=== PATIENT | female | born 1950 | race Caucasian/White ===

== ENCOUNTER → 2018-04-09 | Outpatient (CLI) | payer MEDICARE | END | disposition home or self-care (01) | LOC: RAH 09:35 | PROVIDERS: ATTEND Family Medicine | DX: R92.8 Other abnormal and inconclusive findings on diagnostic imaging of breast (principal); Z85.3 Personal history of malignant neoplasm of breast | CPT/HCPCS: 77066 ==

== ENCOUNTER → 2018-06-11 | Outpatient (CLI) | payer MEDICARE ==
--- NOTE | 2018-06-11 22:46 | NUR ---
CURRENT MEDICATION LIST BOTH PRESCRIPTION AND OTC PER PATIENT: TUMERIC 1 CAP, SYNTHROID 0.75 MG , LISINOPRIL 10 MG , CRESTOR 40 MG , NEXIUM 1 TAB AM, VITAMIN D 50,000 IU ONCE A WEEK, LORIE. E 800 MG DAY. Addendum: 06/11/18 at 2253 by DWIGHT DOBSON Amended: Links added.
== END | disposition home or self-care (01) ==
LOC: SLP 20:21
PROVIDERS: ATTEND Family Medicine
DX: G47.33 Obstructive sleep apnea (adult) (pediatric) (principal)
CPT/HCPCS: 95811

== ENCOUNTER → 2019-04-15 | Outpatient (CLI) | payer MEDICARE | END | disposition home or self-care (01) | LOC: RAH 02-23 13:48 | PROVIDERS: ATTEND Family Medicine | DX: R92.2 Inconclusive mammogram (principal); Z85.3 Personal history of malignant neoplasm of breast | CPT/HCPCS: 77066 ==

== ENCOUNTER → 2019-05-28 | Outpatient (CLI) | payer MEDICARE | END | disposition home or self-care (01) | LOC: RAH 09:51 | PROVIDERS: ATTEND Family Medicine | DX: I08.8 Other rheumatic multiple valve diseases (principal) | CPT/HCPCS: 93306 ==

== ENCOUNTER → 2020-01-31 | Outpatient (CLI) | payer MEDICARE | END | disposition home or self-care (01) | LOC: OIH 10:00 | PROVIDERS: ATTEND Family Medicine | DX: Z01.818 Encounter for other preprocedural examination (principal); M47.814 Spondylosis without myelopathy or radiculopathy, thoracic region; Z98.890 Other specified postprocedural states | CPT/HCPCS: 71046 ==

== ENCOUNTER → 2020-05-04 | Outpatient (CLI) | payer MEDICARE ==
[~2020-05-04] MED LIST: IOHEXOL-350 75 ML VIAL IV ONE
== END | disposition home or self-care (01) ==
LOC: RAH 09:53
PROVIDERS: ATTEND Family Medicine
DX: K85.90 Acute pancreatitis without necrosis or infection, unspecified (principal); R10.12 Left upper quadrant pain
CPT/HCPCS: 74178; Q9967

== ENCOUNTER → 2020-06-02 | Outpatient (CLI) | payer MEDICARE | END | disposition home or self-care (01) | LOC: RAH 07:54 | PROVIDERS: ATTEND Internal Medicine Hematology & Oncology | DX: R92.2 Inconclusive mammogram (principal); Z85.3 Personal history of malignant neoplasm of breast | CPT/HCPCS: 77066 ==

== ENCOUNTER → 2020-12-25 | Outpatient (CLI) | payer MEDICARE | END | disposition home or self-care (01) | LOC: SHCH 11:20 | PROVIDERS: ATTEND Internal Medicine Cardiovascular Disease | DX: I51.7 Cardiomegaly (principal); I10 Essential (primary) hypertension; E78.5 Hyperlipidemia, unspecified; E11.9 Type 2 diabetes mellitus without complications | CPT/HCPCS: 93306; 93356 ==

== ENCOUNTER → 2021-02-06 | Outpatient (CLI) | payer MEDICARE, OTHER | END | disposition home or self-care (01) | LOC: OIH 10:02 | PROVIDERS: ATTEND Family Medicine | DX: M47.816 Spondylosis without myelopathy or radiculopathy, lumbar region (principal); M47.812 Spondylosis without myelopathy or radiculopathy, cervical region; M85.88 Other specified disorders of bone density and structure, other site; M47.814 Spondylosis without myelopathy or radiculopathy, thoracic region; M47.818 Spondylosis without myelopathy or radiculopathy, sacral and sacrococcygeal region | CPT/HCPCS: 72040; 72070; 72100 ==

== ENCOUNTER → 2021-06-06 | Outpatient (CLI) | payer MEDICARE, OTHER | LOC: RAH 10:20 | PROVIDERS: ATTEND Internal Medicine Hematology & Oncology | DX: C50.912 Malignant neoplasm of unspecified site of left female breast (principal); R92.8 Other abnormal and inconclusive findings on diagnostic imaging of breast; Z85.3 Personal history of malignant neoplasm of breast | CPT/HCPCS: 77066 ==

== ENCOUNTER → 2021-09-12 | Outpatient (CLI) | payer MEDICARE ==
[~2021-09-12] MED LIST changes: +ALBUTEROL 0.083% 2.5 MG/3 ML INH IH ONE; -IOHEXOL-350 75 ML VIAL IV ONE
== END | disposition home or self-care (01) ==
LOC: RESP 09:42
PROVIDERS: ATTEND Family Medicine
DX: R06.02 Shortness of breath (principal)
CPT/HCPCS: 94060; 94727; 94729

== ENCOUNTER → 2022-04-24 | Outpatient (CLI) | payer MEDICARE | END | disposition home or self-care (01) | LOC: RAH 12:42 | PROVIDERS: ATTEND Family Medicine | DX: R41.82 Altered mental status, unspecified (principal) | CPT/HCPCS: 70450 ==

== ENCOUNTER → 2023-04-22 | Outpatient (CLI) | payer MEDICARE | END | disposition home or self-care (01) | LOC: RAH 13:46 | PROVIDERS: ATTEND Internal Medicine Hematology & Oncology | DX: Z85.3 Personal history of malignant neoplasm of breast (principal) | CPT/HCPCS: 77066 ==

== ENCOUNTER → 2023-08-04 | Outpatient (CLI) | payer MEDICARE | END | disposition home or self-care (01) | LOC: OIH 15:33 | PROVIDERS: ATTEND Family Medicine | DX: J20.9 Acute bronchitis, unspecified (principal) | CPT/HCPCS: 71046 ==

== ENCOUNTER → 2025-04-04 | Outpatient (CLI) | payer MEDICARE | END | disposition home or self-care (01) | LOC: RAH 13:30 | PROVIDERS: ATTEND Family Medicine | DX: Z12.31 Encounter for screening mammogram for malignant neoplasm of breast (principal) | CPT/HCPCS: 77067 ==

== ENCOUNTER 2025-04-21 17:43 | Emergency (ER) | payer MEDICARE ==
[~2025-04-21] VITALS: Ht 160 cm; Wt 108.0 kg
--- NOTE | 2025-04-21 18:17 | ERN ---
ED Note History of Present Illness Stated Complaint: RT EYE PROBLEM Chief Complaint: Eye Problems Time Seen by MD: 18:11 Time Seen by Midlevel: 18:45 Dictation: Ms. Barclay is a 74 year old female with history of hypertension, hyperlipidemia, type 2 diabetes, and morbid obesity who presented to the emergency department this evening for evaluation of stroke symptoms. Patient [facility] she had sudden loss of vision in her right eye on Friday she states that she was [place] photos at the beach when she looked into the sun. She states she lost vision in her right eye and that everything went red she states that vision loss lasted approximately 2-3 minutes.. She went to the marketing content specialist today and was told to come to the hospital to rule out stroke. She states the vision loss has resolved. She denies any focal weakness/paresthesia, dysarthria, dysphasia, dizziness, headache, seizure, or gait ataxia. Allergies: Coded Allergies: No Known Allergies (Unverified Allergy, 05/10/13) Past Medical History Past Medical History: Diabetes-Type II, High Cholesterol, Hypertension Surgical History: Other PSYCH History: no pertinent psych hx Social History: Negative History: Not Applicable RN Note Reviewed/Agreed w/PFSH: Yes Review of System Dictation REVIEW OF SYSTEMS: CONSTITUTIONAL: Patient denies fevers, chills, sweats and weight changes. EYES: Reported loss of vision on Friday for approximately 2-3 minutes after looking into the sun while taking photographs at the beach. She states "everything went red . EARS, NOSE, AND THROAT: No difficulties with hearing. No symptoms of rhinitis or sore throat. CARDIOVASCULAR: Patient denies chest pains, palpitations, orthopnea and paroxysmal nocturnal dyspnea. RESPIRATORY: No dyspnea on exertion, no wheezing or cough. GI: No nausea, vomiting, diarrhea, constipation, abdominal pain, hematochezia or melena. : No urinary hesitancy or dribbling. No nocturia or urinary frequency. No abnormal urethral discharge. MUSCULOSKELETAL: No myalgias or arthralgias. NEUROLOGIC: No chronic headaches, no seizures. Patient denies numbness, tingling or weakness. PSYCHIATRIC: Patient denies problems with mood disturbance. No problems with anxiety. ENDOCRINE: No excessive urination or excessive thirst. DERMATOLOGIC: Patient denies any rashes or skin changes. Initial Vital Sign VS Vital Signs Date Time Temp Pulse Resp B/P (MAP) Pulse Ox O2 Delivery O2 Flow Rate FiO2 04/21/25 17:45 97.9 78 20 166/85 99 0 04/21/25 19:52 Room Air* 21 Physical Exam Dictation Vital signs: Reviewed. Afebrile Constitutional: No acute distress. Non-toxic appearing. Accompanied by son Head/Face: Normocephalic, atraumatic. Eyes: Periorbital areas with no swelling, redness, or edema. Lids and lashes are normal. Conjunctival injection is absent. Sclera anicteric. Pupils equal, round, reactive to light. 3mm. ENT: Pinnas intact and no signs of trauma or erythema. Ear canals clear and no discharge. TMs no erythema. No nasal discharge or bleeding noted. Oropharynx with no exudate, redness, swelling, masses, exudates, or evidence of obstruction. Uvula midline. Mucous membranes moist. Neck: Trachea midline, no masses palpated, and no cervical lymphadenopathy. No swelling. Supple, full range of motion. Chest/Axilla: No tenderness, no crepitus, no paradoxical movement, no retractions. Cardiovascular: Regular rate, regular rhythm, no murmur, no gallops. Symmetric pulses. No peripheral edema. Initial blood pressure 166/85; repeat 136/68. Respiratory: Respirations even and unlabored. Lung sounds clear; no wheezes, rales or rhonchi. Room air SpO2 97% Gastrointestinal: I Ob No distention is appreciated. Bowel sounds are normal. No mass or organomegaly . There is no tenderness. No rebound. No rigidity. No voluntary or involuntary guarding. No Beltran's sign. Neurological: Normal speech, gross motor function intact, gross sensory function intact. No focal weakness/Paresthesia. Ambulates with steady gait. NIHSS=3 Musculoskeletal/Extremities: All extremities have full range of motion, no pain or tenderness on palpation. Symmetric pulses. Integumentary: Intact. Skin is normal color, warm and dry. Cap refill less than 3 seconds. Results (Laboratory/Radiology) Laboratory/Radiology Laboratory Tests Test 04/21/25 18:45 White Blood Count 6.8 K/uL (4.8-10.8) Red Blood Count 4.72 MIL/uL (4.00-5.50) Hemoglobin 14.7 g/dL (12.0-16.0) Hematocrit 46.6 % (36-48) Mean Corpuscular Volume 98.7 fL (79-99) Mean Corpuscular Hemoglobin 31.1 pg (27.0-33.0) Mean Corpuscular Hemoglobin Concent 31.5 g/dL (32.0-36.0) L Red Cell Distribution Width 13.0 % (11.0-15.5) Platelet Count 188 K/uL (130-400) Mean Platelet Volume 11.6 fL (7.5-10.5) H Immature Granulocyte % (Auto) 0.3 % (0-1) Neutrophils (%) (Auto) 54.0 % (40.0-77.0) Lymphocytes (%) (Auto) 32.4 % (21.0-51.0) Monocytes (%) (Auto) 9.6 % (3.0-13.0) Eosinophils (%) (Auto) 3.1 % (0.0-8.0) Basophils (%) (Auto) 0.6 % (0.0-5.0) Neutrophils # (Auto) 3.7 K/uL (1.8-7.7) Lymphocytes # (Auto) 2.2 K/uL (1.0-4.8) Monocytes # (Auto) 0.7 K/uL (0.1-1.0) Eosinophils # (Auto) 0.21 K/uL (0.00-0.70) Basophils # (Auto) 0.04 K/uL (0.00-0.20) Absolute Immature Granulocyte (auto 0.02 K/uL (0-1) Nucleated Red Blood Cells 0.0 % (0.0-0.19) Sodium Level 138 mmol/L (136-145) Potassium Level 3.9 mmol/L (3.5-5.1) Chloride Level 101 mmol/L (101-111) Carbon Dioxide Level 28 mmol/L (21-32) Blood Urea Nitrogen 15 mg/dL (7-18) Creatinine 1.0 mg/dL (0.5-1.0) Glomerular Filtration Rate Calc 59 mL/min (>90) Random Glucose 167 mg/dL (70-105) H Total Calcium 9.9 mg/dL (8.5-10.1) Total Bilirubin 0.4 mg/dL (0.2-1.0) Direct Bilirubin 0.1 mg/dL (0.0-0.3) Aspartate Amino Transf (AST/SGOT) 111 U/L (10-37) H Alanine Aminotransferase (ALT/SGPT) 136 U/L (12-78) H Alkaline Phosphatase 160 U/L (50-136) H Troponin I High Sensitivity 11 ng/L (4-50) Total Protein 7.8 g/dL (6.0-8.3) Albumin 3.4 g/dL (3.5-5.0) L Labs Reviewed?: Yes EKG Comment: EKG Interpretation: Time Reviewed: 1823 Ventricular rate: 76 bpm LA Interval: 165 ms QRS duration: [address] segment elevation or depression. Clinical impression: Sinus rhythm EKG Reviewed and interpreted by Dr. Tyler Rutherford CT Scan Comment: PATIENT: TIESHA BARCLAY MR#: [id number] : 1950 SEX: F AGE: 74 LOCATION: ED ORDER 15 STATUS: [facility] REPORT#: [id number] SERVICE 12 REASON: right eye vision loss 2 days ago; resolved now ORDERING PHYSICIAN: LÁZARO LARRY PROCEDURE: HEAD WO - CT HEAD/BRAIN W/O CONTRAST EXAM: CT Head Without IV contrast. CLINICAL HISTORY: right eye vision loss 2 days ago; resolved now TECHNIQUE: Axial computed tomography images of the head/brain without intravenous contrast. COMPARISON: None provided. FINDINGS: BRAIN: No evidence of acute hemorrhage. No mass lesion. No CT evidence for acute territorial infarct. No midline shift or extra-axial collections. Diffuse cerebral volume loss in the form of prominent cortical sulci and the ventricular system. Diffuse hypodensities in bilateral periventricular white matter, suggestive of chronic small vessel ischemic changes. VENTRICLES: No hydrocephalus. ORBITS: The orbits are unremarkable. SINUSES AND MASTOIDS: The paranasal sinuses and mastoid air cells are clear. BONES: No fracture. Bilateral hyperostosis frontalis. SOFT TISSUES: Unremarkable. IMPRESSION: No acute intracranial abnormality. No acute intracranial hemorrhage/territorial infarct. Diffuse cerebral volume loss with chronic small vessel ischemic changes. Recommend MRI brain for further evaluation if symptoms persist. /[place] DICTATED BY: AIDAN DERAS Jr., MD DATE: 04/21/252023 ELECTRONICALLY SIGNED BY: AIDAN DERAS Jr., MD DATE: 04/21/252023 ED Course ED Course Orders Procedure Category Date Status Time Ct Head/Brain W/O CT 04/21/25 Resulted Contrast 18:13 Cbc With Differential LAB 04/21/25 Complete 18:13 Basic Metabolic Panel LAB 04/21/25 Complete 18:13 Hepatic Function Panel LAB 04/21/25 Complete 18:13 Troponin I High LAB 04/21/25 Complete Sensitivity 18:13 12 Lead Ekg Tracing- EKG 04/21/25 Complete Technical 18:13 Urinalysis Profile LAB 04/21/25 Logged 19:38 Vital Signs Date Time Temp Pulse Resp B/P (MAP) Pulse Ox O2 Delivery O2 Flow Rate FiO2 04/21/25 19:52 98.2 82 20 172/85 97 Room Air* 0 21 04/21/25 17:45 97.9 78 20 166/85 99 0 Uneventful ED course. Patient is pleasant. Initial blood pressures were slightly elevated 172/85. Repeat 138/68 which she uses more her baseline. GCS is 15. NIHSS=0. She states she has some blurriness in her eyes which she contributes to her early cataracts. She denies chest pain shortness of breath. Stat noncontrast CT scan of the brain negative for hemorrhage or suspicious mass effect. Laboratory findings as noted below. No elevation of WBCs H&H are stable. Glucose 167. Albumin 3.4, AST/ALT 111/136, alk-phos 160, and troponin is negative. Twelve lead EKG reflects a sinus rhythm without ST-elevation. She offers no other concerns. She will follow up with your PCP and marketing content specialist. Medical Decision Making MDM MDM: Differential diagnosis: Solar retinopathy, TIA, ocular migraine, occipital lobe stroke, retinal detachment or tear Rationale: Tests considered and ordered secondary to shared decision making include: Examination, EKG Interpretation: lab, CT Previous outside records reviewed: Old ER visits. Risk of complication and/or morbidity or mortality of patient management: None Medications-Per medication reconciliation Need for hospitalization: Patient does not meet criteria for hospitalization. Need for emergency major/minor surgery: No There are no social concerns with this patient. Prescription drug management: Continue home medications. Prescriptions will include symptomatic care Patient's prior external medical records from other ER visits were reviewed by me as indicated. Prior testing and results from previous visits were reviewed. Prior tests were taken into account with medical decision making and resource utilization, independent historian/historians were used to obtain complete medical history. I independently interpreted the test that were performed, results were reviewed by me and considered findings on radiology if ordered. Medical management and examination interpretation discussions were had by me with other qualified healthcare professionals as indicated for the patient's care. DX & DISP Disposition: Discharge Departure Impression: Primary Impression: Solar retinopathy of right eye Additional Impression: Elevated liver function tests Condition: Stable Additional Instructions: Your eye symptoms today are related to briefly looking at the sun and are not a sign of a stroke. Your brain scan was normal. Your EKG was normal. During your visit today we also check routine blood work. If you have your lab as were mildly elevated, and although they are not related to your eye symptoms, they should be follow up on. Your liver enzymes were elevated ALT 136, AST 111, and alk-phos 160. These numbers are higher than normal and can occur for many reasons including alcohol use, [id number] medication uses fatty liver disease, or mild inflammation/irritation of the liver. You should avoid alcohol completely until you see your primary care provider avoid unnecessary Tylenol or medicines containing Tylenol. Drink plenty of fluids. And follow up with your primary care provider within one week to repeat the liver test and possibly perform an ultrasound if needed Referrals: TALITA ANAYA MD (PCP) Time of Disposition: 20:26 LÁZARO LARRY Apr 21, 2025 18:17
--- NOTE | 2025-04-21 18:33 | EKG ---
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
--- NOTE | 2025-04-21 18:57 | NUR ---
BED ASSIGNED AT THIS TIME
[2025-04-21 19:15] LABS: IMMATURE GRANULOCYTE ABSOLUTE 0.02 K/uL (0-1); NUCLEATED RED BLOOD CELLS 0.0 % (0.0-0.19); PLATELET COUNT (AUTO) 188 K/uL (130-400); RED BLOOD CELL COUNT(AUTO) 4.72 MIL/uL (4.00-5.50); RED CELL DISTRIBUTION WIDTH 13.0 % (11.0-15.5); WHITE BLOOD COUNT (AUTO) 6.8 K/uL (4.8-10.8)
--- NOTE | 2025-04-21 19:24 | HMCIMG ---
EXAM: CT Head Without IV contrast. CLINICAL HISTORY: right eye vision loss 2 days ago; resolved now TECHNIQUE: Axial computed tomography images of the head/brain without intravenous contrast. COMPARISON: None provided. FINDINGS: BRAIN: No evidence of acute hemorrhage. No mass lesion. No CT evidence for acute territorial infarct. No midline shift or extra-axial collections. Diffuse cerebral volume loss in the form of prominent cortical sulci and the ventricular system. Diffuse hypodensities in bilateral periventricular white matter, suggestive of chronic small vessel ischemic changes. VENTRICLES: No hydrocephalus. ORBITS: The orbits are unremarkable. SINUSES AND MASTOIDS: The paranasal sinuses and mastoid air cells are clear. BONES: No fracture. Bilateral hyperostosis frontalis. SOFT TISSUES: Unremarkable. IMPRESSION: No acute intracranial abnormality. No acute intracranial hemorrhage/territorial infarct. Diffuse cerebral volume loss with chronic small vessel ischemic changes. Recommend MRI brain for further evaluation if symptoms persist. /[place]
[2025-04-21 19:29] LABS: CREATININE 1.0 mg/dL (0.5-1.0); GLOMERULAR FILTR. RATE CALC 59.0 mL/min (>90); GLUCOSE,RANDOM 167.0 mg/dL (70-105); SODIUM SERUM 138.0 mmol/L (136-145); UREA NITROGEN, BLOOD 15.0 mg/dL (7-18)
[2025-04-21 19:30] LABS: ASPARTATE AMINOTRANSFERASE 111.0 U/L (10-37); TOTAL PROTEIN, SERUM 7.8 g/dL (6.0-8.3)
[2025-04-21 20:53] VITALS: BP 134/68; PULSE 78; RESP 20; TEMP 98.2; O2SAT 97
== END 2025-04-21 20:54 | disposition home or self-care (01) ==
LOC: EDH 17:43
DX: H31.02 Solar retinopathy (principal); R79.89 Other specified abnormal findings of blood chemistry; E11.9 Type 2 diabetes mellitus without complications; I10 Essential (primary) hypertension; E78.00 Pure hypercholesterolemia, unspecified
CPT/HCPCS: 36415; 70450; 80048; 80076; 84484; 85025; 93005; 99284